=== PATIENT | male | born 1985 | race Caucasian/White ===

== ENCOUNTER 2019-04-26 09:06 | Outpatient (CLI) | payer OTHER | END 2019-04-26 23:59 | disposition home or self-care (01) | LOC: CFH 09:06 | PROVIDERS: ATTEND Nurse Practitioner Primary Care | DX: J32.9 Chronic sinusitis, unspecified (principal); R53.83 Other fatigue; E78.2 Mixed hyperlipidemia; M10.9 Gout, unspecified; R05 Cough | CPT/HCPCS: 70486 ==